=== PATIENT | female | born 1960 | race Hispanic/Latino ===

== ENCOUNTER → 2019-11-13 | Day surgery (SDC) | payer BC ==
[~2019-11-13] MED LIST: FENTANYL CITRATE/PF 100MCG/2 ML INJ ONE; MIDAZOLAM HCL 2 MG/2 ML VIAL ONE; PROPOFOL IV EMULSION 10 MG/ML 50 ML VIAL ONE
--- OUTSIDE RECORDS SUMMARY | 2019-11-13 11:09 | XMS REPORT ---
Author Author [facility] Address Unknown Phone Unavailable Care Team Providers Care Yardage Control Clerk Name Role Phone Unavailable Unavailable Problems This patient has no known problems. Allergies, Adverse Reactions, Alerts This patient has no known allergies or adverse reactions. Medications This patient has no known medications. Encounters Start Date/Time End Date/Time Encounter Type Admission Type Attending [facility] Facility Care Department Encounter ID 2019-05-27 09:00:00 2019-05-27 09:00:00 Outpatient [id number] 2019-05-23 08:54:00 2019-05-23 08:54:00 Outpatient [facility] MED [id number]
--- OUTSIDE RECORDS SUMMARY | 2019-11-13 11:09 | XMS REPORT | Summary of Care ---
Author Author Freya Wolf R.N. Unknown Address Unknown Phone Unavailable Care Team Providers Care Batch Records Clerk Name Role Phone Freya Wolf R.N. Unavailable Unavailable JULIA DILLARD [place], YAMILA MYERS Unavailable Unavailable Unavailable Unavailable Functional Status Name Dates Details Functional status health issues are not documented Status: Name Dates Details Cognitive status health issues are not documented Status: Problems Name Dates Details Visit for screening mammogram (V76.12, Z12.31) Status: Active Well female exam with routine gynecological exam (, Z01.419) Status: Active Numbness and tingling (782.0, R20.0) Status: Active Right foot pain (729.5, M79.671) Status: Active Neck pain (723.1, M54.2) Status: Active Arm numbness left (782.0, R20.0) Status: Active Degenerative cervical spinal stenosis (723.0, M48.02) Status: Active BMI 25.0-25.9,adult (V85.21, Z68.25) Status: Active Negative depression screening (V79.0, Z13.31) Status: Active Need for Tdap vaccination (V06.1, Z23) Status: Active Encounter for hepatitis C screening test for low risk patient (V73.89, Z11.59) Status: Active Pelvic pain in female (625.9, R10.2) Status: Active Medications Name Dates Details Tylenol TABS Active Allergies and Adverse Reactions Name Dates Details No Known Allergies (Allergy) Status: Active Past Medical History Name Dates Details History of colonic polyps (V12.72, Z86.010) Status: Resolved History of Encounter for routine gynecological examination with Papanicolaou smear of cervix (, Z01.419) Status: Resolved Procedures Procedure Dates Details History of Tubal ligation Completed History of Vaginal surgery Completed History of Hysterectomy Completed History of Gallbladder surgery Completed History of Appendectomy Completed Immunization Name Dates Details Tdap (Boostrix) Lot #: [id number] on: 24-Mar-2019 Family History Name Dates Details Family history of colon cancer (V16.0, Z80.0) Status: Active Name Dates Details Family history of malignant neoplasm of prostate (V16.42, Z80.42) Status: Active Family history of diabetes mellitus (V18.0, Z83.3) Status: Active Family history of essential hypertension (V17.49, Z82.49) Status: Active Family history of Stroke risk (V15.89, Z91.89) Status: Active Social History Name Dates Details Unknown if ever smoked Vital Signs Date Test Result Details No Known Vitals to report Results Date Description Value Details Results not documented Plan of Care Name Dates Details Planned Observations Planned Goals not documented Instructions Name Dates Details Instructions not documented Encounters Appointment; BRIJESH BARTHOLOMEW P.A. Encounter Diagnosis: Problem not documented On: 24-Mar-2019 9:15
[2019-11-13 13:49] VITALS: BP 114/77
== END | disposition home or self-care (01) ==
LOC: OR 10:57
PROVIDERS: ATTEND Internal Medicine Gastroenterology
DX: C44.520 Squamous cell carcinoma of anal skin (principal); D12.2 Benign neoplasm of ascending colon; D12.5 Benign neoplasm of sigmoid colon; Z71.3 Dietary counseling and surveillance; E66.3 Overweight; Z68.25 Body mass index [BMI] 25.0-25.9, adult; Z80.0 Family history of malignant neoplasm of digestive organs
CPT/HCPCS: 45385; 93005; J2250; J2704; J3010; 45378